=== PATIENT | female | born 1965 | race African-American/Black ===

== ENCOUNTER 2019-08-10 15:22 | Emergency (ER) | payer MEDICARE, MEDICAID ==
[~2019-08-10] VITALS: Ht 165.1 cm; Wt 95.0 kg
[~2019-08-10 15:22] MED LIST: BENA20TA10; HCTZ; IBUPROFEN; VICODIN
[2019-08-10 15:45] VITALS: BP 153/86
[2019-08-10] MEDS ORDERED: KETOROLAC 60MG/2ML VIAL IM ONE (16:15)
== END 2019-08-10 16:25 | disposition home or self-care (01) ==
LOC: ER 16:10
DX: S16.1XXA Strain of muscle, fascia and tendon at neck level, initial encounter (principal); I10 Essential (primary) hypertension; F17.200 Nicotine dependence, unspecified, uncomplicated; V43.52XA Car driver injured in collision with other type car in traffic accident, initial encounter; Y93.89 Activity, other specified; Y92.410 Unspecified street and highway as the place of occurrence of the external cause; Z88.0 Allergy status to penicillin
CPT/HCPCS: 96372; 99283; J1885